=== PATIENT | male | born 1950 | race Hispanic/Latino ===

== ENCOUNTER → 2022-08-22 | Outpatient (CLI) | payer OTHER ==
[~2022-08-22] MED LIST: AMLO-258 PO; ASPI-1005 PO; ATOR10TA69 PO; FURO20TA4 PO; GLIM4TAB36 PO; HYDR-4153 PO; LOSA100T58 PO; METO-408 PO; MULT-1258 PO; PARS1TAB3 PO
== END | disposition home or self-care (01) ==
LOC: SHCH 12:22
PROVIDERS: ATTEND Internal Medicine Cardiovascular Disease
DX: I87.2 Venous insufficiency (chronic) (peripheral) (principal); I73.9 Peripheral vascular disease, unspecified
CPT/HCPCS: 93925; 93970

== ENCOUNTER → 2024-10-13 | Outpatient (CLI) | payer OTHER ==
[~2024-10-13] MED LIST changes: -HYDR-4153 PO; +HYDR25TA67 PO; -LOSA100T58 PO; +LOSA100T59 PO
--- NOTE | 2024-10-15 07:31 | HMCSR ---
APPROVED REPORT Right Lower Extremity Venous Study for DVT. Indications S/P SAVANAHWILFRED RGSV 10-10-24 Vein Imaging CFV (R): Normal flow, augmentation and compression. No evidence of DVT. SFJ (R): Normal flow, augmentation and compression. No evidence of DVT. FEM (R): Normal flow, augmentation and compression. No evidence of DVT. POP (R): Normal flow, augmentation and compression. No evidence of DVT. DFV (R): Normal flow, augmentation and compression. No evidence of DVT. PTV (R): Normal flow, augmentation and compression. No evidence of DVT. Peroneals (R): Normal flow, augmentation and compression. No evidence of DVT. Technologist Impression THE DEEP VEINS OF THE RLE APPEAR PATENT AND COMPRESSIBLE WITHOUT THROMBUS. RGSV APPEARS CLOSE FROM PROXIMAL THIGH TO MID CALF. Conclusion Successful ablation of right greater saphenous vein Conclusion Successful ablation of right greater saphenous vein
== END | disposition home or self-care (01) ==
LOC: SHCH 09:55
PROVIDERS: ATTEND Internal Medicine Cardiovascular Disease
DX: Z09 Encounter for follow-up examination after completed treatment for conditions other than malignant neoplasm (principal); I87.2 Venous insufficiency (chronic) (peripheral); I87.1 Compression of vein
CPT/HCPCS: 93971